=== PATIENT | female | born 1960 | race Caucasian/White ===

== ENCOUNTER → 2017-08-02 | Outpatient (CLI) | payer BC ==
--- NOTE | 2017-08-02 09:06 | DIAGNOSTIC IMAGING REPORT ---
THYROID ULTRASOUND CLINICAL HISTORY: Diffuse thyroid enlargement. Multiple thyroid nodules. COMPARISON STUDY: None. TECHNIQUE: Sonography of the thyroid gland was performed. FINDINGS: The right thyroid lobe measures 4.6 x 1.7 x 1.8 cm and the left measures 4.2 x 1.2 x 1.2 cm. There are are multiple subcentimeter thyroid nodules, the largest of which is a hypoechoic 0.5 cm left lobe nodule. A morphologically benign left level 4 cervical lymph node is incidentally noted. IMPRESSION: 1. Multiple small subcentimeter thyroid nodules, measuring up to 5 mm. These nodules do not meet criteria for biopsy. 2. Normal size thyroid gland. Electronically signed by: Flynn Mcpherson M.D. 08/02/2017 9:05 AM Dictated Date/Time: 08/02/2017 9:03 AM
== END | disposition home or self-care (01) ==
LOC: C.ULTR 08:25
PROVIDERS: ATTEND Family Medicine
DX: E04.2 Nontoxic multinodular goiter (principal)

== ENCOUNTER → 2017-09-08 | Outpatient (CLI) | payer BC ==
--- NOTE | 2017-09-08 09:54 | DIAGNOSTIC IMAGING REPORT ---
GI SERIES W/AIR ROUTINE CLINICAL HISTORY: DYSPHAGIA UNSPECIFIED COMPARISON STUDY: Barium swallow 05/27/2009. FLUOROSCOPY TIME: 1.7 minutes. 21 fluoroscopic spot images. FINDINGS: The patient swallowed barium without difficulty. The esophagus is normal in course, caliber, motility. No hiatus hernia. No gastroesophageal reflux. No gastric ulcerations. The duodenal bulb and duodenal C sweep are within normal limits. IMPRESSION: Normal upper GI series. Electronically signed by: Figueroa Kingston M.D. 09/08/2017 9:53 AM Dictated Date/Time: 09/08/2017 9:51 AM
== END | disposition home or self-care (01) ==
LOC: C.RAD 09:08
PROVIDERS: ATTEND Family Medicine
DX: R13.10 Dysphagia, unspecified (principal)

== ENCOUNTER → 2017-10-07 | Outpatient (CLI) | payer OTHER ==
--- NOTE | 2017-10-08 13:26 | MAMMOGRAPHY REPORT ---
BILATERAL DIGITAL SCREENING MAMMOGRAM TOMOSYNTHESIS WITH CAD: 10/07/2017 CLINICAL HISTORY: Routine screening. TECHNIQUE: Breast tomosynthesis in addition to standard 2D mammography was performed. Current study was also evaluated with a Computer Aided Detection (CAD) system. COMPARISON: Comparison is made to exams dated: 04/06/2011 mammogram, 04/03/2010 mammogram - [facility], 03/02/2015 mammogram - [facility], 11/18/2013 mammogram, 01/25/2009 mammogram. BREAST COMPOSITION: There are scattered areas of fibroglandular density in both breasts. FINDINGS: No suspicious masses, calcifications, or areas of architectural distortion are noted in ei ther breast. There has been no significant interval change compared to prior exams. IMPRESSION: ACR BI-RADS CATEGORY 1: NEGATIVE There is no mammographic evidence of malignancy. A 1 year screening mammogram is recommended. The pa tient will receive written notification of the results. Approximately 10% of breast cancers are not detected with mammography. A negative mammographic report should not delay biopsy if a clinically suggestive mass is present. Galina Griffiths M.D. ah/:10/07/2017 16:07:30 Department Mgr: Sabra SEVERINO(R)(M), [facility] letter sent: Normal 1/2 BI-RADS Code: ACR BI-RADS Category 1: Negative
== END | disposition home or self-care (01) ==
LOC: C.MAMM 15:48
PROVIDERS: ATTEND Family Medicine
DX: Z12.31 Encounter for screening mammogram for malignant neoplasm of breast (principal)

== ENCOUNTER 2024-12-15 20:26 | Inpatient (IN) ==
[2024-12-15 21:21] LABS: Albumin Globulin Ratio 1.2 (0.9-2); Albumin Level 4.3 gm/dl (3.4-5.0); BUN Creatinine Ratio 15.2 (10-20); Bilirubin,Total 0.9 mg/dl (0.2-1.0); Calcium 9.7 mg/dl (8.6-10.3); Creatinine Clr Calc Pharmacy 79.5 ml/min; Globulin 3.5 gm/dl (2.5-4.0); Potassium 3.3 mmol/L (3.5-5.1); Total Protein 7.8 gm/dl (6.0-8.3)
[2024-12-15 21:24] LABS: Basophils # (auto) 0.06 K/uL (0.00-0.20); Basophils % (auto) 0.6 %; Eosinophils # (auto) 0.32 K/uL (0.00-0.50); Eosinophils % (auto) 3.4 %; Hematocrit (blood only) 45.8 % (37.0-47.0); Hemoglobin 15.1 g/dl (12.0-16.0); Immature Granulocytes # (auto) 0.02 K/uL (0.01-0.20); Immature Granulocytes % (auto) 0.2 %; Lymphocytes # (auto) 3.29 K/uL (1.20-3.40); Lymphocytes % (auto) 34.5 %; Mean Corpuscular Hemoglobin 29.8 pg (25.0-34.0); Mean Corpuscular Volume 90.5 fL (80.0-100.0); Mean Platelet Volume 9.5 fL (9.4-12.4); Monocytes # (auto) 0.74 K/uL (0.11-0.59); Monocytes % (auto) 7.7 %; Neutrophils # (auto) 5.12 K/uL (1.40-6.50); Neutrophils % (auto) 53.6 %; Platelet Count 257 K/uL (130-400); RDW Coefficient of Variation 13.6 % (11.5-14.5); RDW Standard Deviation 45.1 fL (36.4-46.3); Red Blood Count 5.06 M/uL (4.20-5.40); White Blood Count 9.55 K/ul (4.8-10.8)
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
[2024-12-15] MEDS: OPTIRAY 320 100ml IV ONE (22:14)
--- NOTE | 2024-12-15 23:41 | CT Scan Report ---
Exam(s): CT FACIAL With Contrast IV Amt: 90 cc opti 320 EXAM: CT Maxillofacial With Intravenous Contrast CLINICAL HISTORY: Reason for exam: facial swelling. TECHNIQUE: Axial computed tomography images of the face with intravenous contrast. CTDI is 7.64 mGy and DLP is 145.91 mGy-cm. Automated exposure control was utilized for the study. A dose lowering technique was utilized adhering to the principles of ALARA. CONTRAST: Patient received 90 cc opti 320 of IV contrast COMPARISON: No relevant prior studies available. FINDINGS: There is periapical lucency/abscess involving the left first maxillary molar (tooth 14). There is dehiscence of the outer maxillary cortex with associated subperiosteal abscess measuring 6 x 15 x 10 mm (axial 37, sagittal 68). There is cellulitis of the adjacent lateral left upper lip soft tissues. There is reactive odontogenic sinus disease in the left maxillary sinus. There are no fractures. Paranasal sinuses are otherwise clear. Orbits are unremarkable. IMPRESSION: 1. Periapical abscesses left first maxillary molar (tooth 14) with dehiscence of the maxillary cortex, adjacent subperiosteal abscess, regional cellulitis. 2. Odontogenic left maxillary sinus disease. Electronically signed by: Tyra Kelly M.D. 12/15/24 23:40 PM
[2024-12-15] MEDS: lisinopril 5 MG TAB PO ONE (23:42)
[2024-12-15] MEDS: KETOROLAC TROMETHAMINE 15 MG/ML VIAL IV ONE (23:42)
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
[2024-12-16] MEDS: AMPICILLIN/SULBACTAM SOD 3,000 MG/100 ML BAG IV STA (00:20)
[2024-12-16] MEDS: MoRPHine SULFATE 2 MG/ML CARP IV PRN ×3 (01:42→12:19)
[2024-12-16] MEDS ORDERED: ONDANSETRON INJ 2 MG/ML 2 ML VIAL IV PRN (02:17)
[2024-12-16] MEDS: LACTATED RINGER'S 1,000 ML IV STA (03:19)
[2024-12-16] MEDS: AMPICILLIN/SULBACTAM SOD 3,000 MG/100 ML BAG IV SCH (06:12)
--- NOTE | 2024-12-16 07:39 | Hospitalist Progress Note ---
Date of Service December 16, 2024 Assessment & Plan (1) Periapical abscess: (2) Cellulitis of face: (3) Dental abscess: (4) Hyperlipidemia: (5) Hypertension: (6) Post concussive syndrome: Plan 64yo female with PMHx significant for HTN, HLD, developmental venous anomaly (cerebral), and LGSIL of cervix presented to ER for LEFT sided dental abscess x 1 wk. Was seen by auctioneer tobacco ~wk ago and had lesion drained and was encouraged to come to the ER if any redness/swelling. 4 days TRUCKLOAD OWNER OPERATOR started to notice facial edema and was started on PCN the day prior and then started Clindamycin day prior to admission with persisting facial edema and erythema with sudden worsening day TRUCKLOAD OWNER OPERATOR and presented to ER. Chills but no fevers but with significant pain on admission and given Unasyn IV, toradol IV in ER on admission. WBC 9.5k noting recent abx. No blood cx noted but no CP/SOB reported, has been on abx as outlined. #LEFT periapical abscess of first maxillary molar, facial cellulitis - >1wk pain, recent drainage and failure outpt abx (PCN, clinda) w/ erythema/edema to L face Facial CT noting periapical abscess of left first maxillary molar (tooth 14) with dehiscence of maxillary cortex, adjacent subperiosteal abscesses, regional cellulitis, odontogenic L maxillary sinus disease Unasyn IV continued IVF x 1L LR @ 80cc/hr ENT consulted, Dr Mandujano NPO initially this morning but discussed w/ Dr Mandujano given significant findings on CT and involvement to maxillary sinus and pref for 24hr abx and NPO at midnight and will plan for OR 4/6 Clear liquid diet, adv as paul to easy to chew Pain control- morphine 1-2mg IV on admission, discussed w/ patient given concerns constipation/making feel flushed will order oxycodone 2.5mg for mild- moderate pain (can inc to 5mg if needed) and ADDING TYLENOL 1gm q8h prn fever/pain for mild discomfort Monitor labs/exam in AM - K imporved 3.7 w/ LR and mag wnl and will monitor BMP in AM (on HCTZ/lisinopril combination) #HTN- BP stable 132/75 and remains on Lisinopril-HCTZ AM, Lisinopril HS. Monitor to hold diuretic as needed w/ IVF but has been given this morning #HLD- Atorvastatin 10mg HS continued #Migraine/Post concussive syndrome- Lamotrigine 50mg BID continued #Allergies- Loratadine, Montelukast continued #GERD- Pantoprazole continued #Psych- Sertraline 50mg daily continued DVT proph: SCDs, will order Lovenox SQ x 1 for today but hold off ongoing given OR for AM Dispo: continued inpatient stay on IV abx, NPO at midnight for OR w/ Dr Mandujano in AM. Will need ongoing f/u and likely 2nd surgery to address sinus pending operative course. Appreciate ongoing recs/assistance from Dr Mandujano Admission and Anticipated Discharge Date Admission Date: December 16, 2024 Supervising Physician Co-Signing Physician Notes The patient was not seen by me. The chart was reviewed. Case discussed with SAMUEL Funes. Agree with assessment and plan Subjective BRIDE NOTE: admitted after midnight, no pill Eval in ER, laying in bed. Pain stable, some hot flashing from the morphine, discussed low dose oxycodone and will make 2.5mg available. Tolerating diet, no difficulty swallowing. Discussed Dr Mandujano consult, saw this morning, plans for OR tomorrow. She is aware possibly needing two surgeries given involvement to her maxillary sinus. No CP/SOB. At end of encounter, transport arriving to take to room 356 for inpatient stay. Questions/concerns addressed. Physical Exam 2 Physical Exam: General: 64yo female laying in bed, NAD HEENT: left sided facial swelling, +maxillary tenderness, LEFT upper molar w/ periapical fluid collection/cyst without active drainage, no stridor, tolerating secretion Resp: even/unlabored, no wheezing, on room air CV: RRR, no significant m/r/g GI : +BS, soft/NT Psych: AOx3, cooperative with exam Results & Data Results & Data Vital Signs (Past 12 Hours) Vital Signs Temp Pulse Pulse Resp BP BP Pulse Ox 12/16/24 03:34 64 20 128/58 L 97 12/16/24 01:02 81 19 159/90 H 97 12/15/24 20:32 37 C 79 16 182/90 H 100 O2 Del Method 12/16/24 03:34 Room Air 12/16/24 01:02 Room Air 12/15/24 20:32 Room Air Laboratory Results 04/04/25 20:46 12/15/24 20:[address] 12/15/24 21:51 Exam(s): CT FACIAL With Contrast IV Amt: 90 cc opti 320 EXAM: CT Maxillofacial With Intravenous Contrast CLINICAL HISTORY: Reason for exam: facial swelling. TECHNIQUE: Axial computed tomography images of the face with intravenous contrast. CTDI is 7.64 mGy and DLP is 145.91 mGy-cm. Automated exposure control was utilized for the study. A dose lowering technique was utilized adhering to the principles of ALARA. CONTRAST: Patient received 90 cc opti 320 of IV contrast COMPARISON: No relevant prior studies available. FINDINGS: There is periapical lucency/abscess involving the left first maxillary molar (tooth 14). There is dehiscence of the outer maxillary cortex with associated subperiosteal abscess measuring 6 x 15 x 10 mm (axial 37, sagittal 68). There is cellulitis of the adjacent lateral left upper lip soft tissues. There is reactive odontogenic sinus disease in the left maxillary sinus. There are no fractures. Paranasal sinuses are otherwise clear. Orbits are unremarkable. IMPRESSION: 1. Periapical abscesses left first maxillary molar (tooth 14) with dehiscence of the maxillary cortex, adjacent subperiosteal abscess, regional cellulitis. 2. Odontogenic left maxillary sinus disease. Electronically signed by: Tyra Kelly M.D. 12/15/24 23:40 PM PG Care Time/CCT Total # of Minutes Spent Total Time Spent with Patient: Total time spent is greater than 50% in coordination of care (as documented) at patient's floor/unit and/or counseling patient: Coding Level of Care Code None Diagnoses Periapical abscess K04.7 Cellulitis of face L03.211 Dental abscess K04.7 Hyperlipidemia E78.5 Hypertension I10 Post concussive syndrome F07.81
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
[2024-12-16 09:18] LABS: Calcium 8.6 mg/dl (8.6-10.3); Creatinine Clr Calc Pharmacy 108.2 ml/min; Potassium 3.7 mmol/L (3.5-5.1)
[2024-12-16] MEDS: PANTOprazole 40 MG TAB PO SCH (10:02)
[2024-12-16] MEDS: LORATADINE 10 MG TAB PO SCH (10:02)
[2024-12-16] MEDS: lamoTRIgine 25 MG TAB PO SCH (10:02)
[2024-12-16] MEDS: SERTRALINE HCL 50 MG TABLET PO SCH (10:02)
[2024-12-16] MEDS: LISINOPRIL/HCTZ 10/12.5MG TAB PO SCH (10:03)
[2024-12-16] MEDS: ENOXAPARIN INJ 40 MG/0.4 ML SYR SQ ONE (14:40)
[2024-12-16] MEDS: oxyCODONE HCL IR 5 MG TAB (IMMEDIATE RELEASE) PO PRN (14:52)
[2024-12-16] MEDS: lisinopril 10 MG TAB PO SCH (21:22)
[2024-12-16] MEDS: ATORVASTATIN 10 MG TAB PO SCH (21:23)
[2024-12-16] MEDS: MONTELUKAST SODIUM 10 MG TABLET PO SCH (21:23)
--- NOTE | 2024-12-16 22:05 | Electrocardiogram Report ---
Test Reason : Blood Pressure : */* mmHG Vent. Rate : 73 BPM Atrial Rate : 73 BPM P-R Int : 184 ms QRS Dur : 84 ms QT Int : 396 ms P-R-T Axes : 41 16 32 degrees QTcB Int : 436 ms Normal sinus rhythm Normal ECG When compared with ECG of 19-May-2024 10:33, No significant change was found Confirmed by Ky Hunt ([id number]) on 12/16/2024 10:04:47 PM Referred By: Nam Weldon Confirmed By: Ky Hunt
[2024-12-16] MEDS: MELATONIN 3 MG TAB PO PRN (23:20)
[2024-12-16] MEDS: ACETAMINOPHEN 500 MG TAB PO PRN (23:32)
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
--- NOTE | 2024-12-17 07:37 | History & Physical Bridge Note ---
Date of Service December 17, 2024 History & Physical Bridge Note I have examined the patient, reviewed the History & Physical and in the interval since the performance of the History & Physical I have noted the following changes of clinical significance: no changes noted. Swelling much improved in the face still in the mucobuccal fold. Plan I&D with extraction of # 14
[2024-12-17] MEDS ORDERED: ROCURONIUM BROMIDE 10 MG/ML 5 ML VIAL IV ONE (07:40)
[2024-12-17] MEDS ORDERED: ONDANSETRON INJ 2 MG/ML 2 ML VIAL ONE (07:40)
[2024-12-17] MEDS ORDERED: DEXAMETHASONE SOD INJ 4 MG/ML VIAL ONE ×2 (07:40→08:03)
[2024-12-17] MEDS ORDERED: PROPOFOL IV EMULSION 10 MG/ML 20 ML VIAL IV ONE (07:40)
[2024-12-17] MEDS ORDERED: fentaNYL citrate PF 100 MCG/2 ML VIAL ONE (07:41)
[2024-12-17] MEDS ORDERED: SUGAMMADEX SODIUM 200 MG/2 ML VIAL IV ONE ×2 (07:42)
[2024-12-17] MEDS: BUPIVACAINE/EPINEPHRINE 0.5% 1:200,000 1.8 ML CARP ONE (08:07)
[2024-12-17] MEDS: CHLORHEXIDINE GLUCONATE 0.12% 480 ML MT ONE (08:07)
--- NOTE | 2024-12-17 08:10 | Discharge Summary ---
Discharge Summary Date of Service December 17, 2024 Principal Dx & Hospital Course #1 = Principal Diagnosis (1) Periapical abscess: (2) Cellulitis of face: (3) Dental abscess: (4) Hyperlipidemia: (5) Hypertension: (6) Post concussive syndrome: Plan 64yo female with PMHx significant for HTN, HLD, developmental venous anomaly (cerebral), and LGSIL of cervix presented to ER for LEFT sided dental abscess x 1 wk. Was seen by field crops harvest machine operator ~wk ago and had lesion drained and was encouraged to come to the ER if any redness/swelling. 4 days [employer]OPS FARMWORKER started to notice facial edema and was started on PCN the day prior and then started Clindamycin day prior to admission with persisting facial edema and erythema with sudden worsening day [employer] FARM[employer] and presented to ER. Chills but no fevers but with significant pain on admission and given Unasyn IV, toradol IV in ER on admission. WBC 9.5k noting recent abx. No blood cx noted but no CP/SOB reported, has been on abx as outlined. #LEFT periapical abscess of first maxillary molar, facial cellulitis - >1wk pain, recent drainage and failure outpt abx (PCN, clinda) w/ erythema/edema to L face Facial CT noting periapical abscess of left first maxillary molar (tooth 14) with dehiscence of maxillary cortex, adjacent subperiosteal abscesses, regional cellulitis, odontogenic L maxillary sinus disease Unasyn IV continued IVF x 1L LR @ 80cc/hr ENT consulted, Dr Mandujano NPO initially this morning but discussed w/ Dr Mandujano given significant findings on CT and involvement to maxillary sinus and pref for 24hr abx and NPO at midnight and will plan for OR 4/6 Clear liquid diet, adv as paul to easy to chew Pain control- morphine 1-2mg IV on admission, discussed w/ patient given concerns constipation/making feel flushed will order oxycodone 2.5mg for mild- moderate pain (can inc to 5mg if needed) and ADDING TYLENOL 1gm q8h prn fever/pain for mild discomfort Monitor labs/exam in AM - K improved 3.7 w/ LR and mag wnl and will monitor BMP in AM (on HCTZ/lisinopril combination) 4/6. Unasyn IV continued. LR @ 80cc/hr ordered while NPO for OR w/ Dr Mandujano. Lab s pending from this morning #HTN- BP stable 132/75 and remains on Lisinopril-HCTZ AM, Lisinopril HS. Monitor to hold diuretic as needed w/ IVF but has been given this morning #HLD- Atorvastatin 10mg HS continued #Migraine/Post concussive syndrome- Lamotrigine 50mg BID continued #Allergies- Loratadine, Montelukast continued #GERD- Pantoprazole continued #Psych- Sertraline 50mg daily continued DVT proph: SCDs, will order Lovenox SQ x 1 for today but hold off ongoing given OR for AM Dispo: continued inpatient stay on IV abx, NPO at midnight for OR w/ Dr Mandujano in AM. Will need ongoing f/u and likely 2nd surgery to address sinus pending operative course. Appreciate ongoing recs/assistance from Dr Mandujano Admission HPI Per Admitting Provider 64-year-old female PMHx HLD, HTN, developmental venous anomaly (cerebral), and LGSIL of cervix presenting for left-sided dental abscess x 1 week. Patient saw her field crops harvest machine operator around 1 week [employer] to have the lesion drained, and then was encouraged to come to the ED if her face became erythematous or edematous. States that approximately 4 days [employer] she started to notice some facial edema. Was started on penicillin 5 days [employer] FARM[employer], and then started on clindamycin the day [employer] FARM[employer] with persisting facial edema and erythema. Notes that the swelling felt that it suddenly worsened the day [employer] FARM[employer] and this concerned her. She notes that there was no injury or trauma to the area that initially had started the infection, but she did have a root canal approximately 4 years ago at that area. Was initially seen by dentist who stated that she needed to have a procedure to alleviate the infection, and that he had poked the area in hopes that drainage would occur, but no drainage occurred. Patient states that she feels she may have some chills on and off but no fevers. Reports that the pain is "severe" and that medications in ED did not alleviate the pain at all. Denying chest pain, shortness of breath, palpitations, abdominal pain, N/V/D/C, numbness/tingling, LUTS, syncope, or weakness. ED evaluation reveals no leukocytosis, stable H&H; CMP potassium 3.3, AST 12, alk phos 106; face CT reveals periapical abscess of left first maxillary molar (tooth 14) with dehiscence of maxillary cortex, adjacent subperiosteal abscesses, regional cellulitis, odontogenic L maxillary sinus disease; EKG NSR at 73bpm.; Provided with Unasyn 3 g IV, ketorolac 15 mg IV, and lisinopril 10 mg p.o. in ED. Please see Dr. Benavidez's attestation for adjustments/additions to treatment plan. Discharge Plan Discharge Items Reason For Visit: PERIAPICAL CELLULITIS, L Follow-up/Referrals: Shantel Freed [Primary Care Provider] - Medications and DC Order Prescriptions: No Action lisinopril 10 mg tablet 10 mg PO HS multivitamin Tablet 1 tab PO QAM atorvastatin 10 mg tablet 10 mg PO HS acetaminophen [Tylenol Extra Strength] 500 mg Tablet 1,000 mg PO Q6H PRN (Reason: Pain) pantoprazole 40 mg tablet,delayed release (DR/EC) 40 mg PO QAM montelukast 10 mg tablet 10 mg PO HS lisinopril-hydrochlorothiazide 10-12.5 mg tablet 1 tab PO QAM loratadine [Claritin] 10 mg Tablet 10 mg PO QAM lamotrigine [Lamictal] 25 mg tablet 50 mg PO BID Rx Instructions: 2 tabs po BID. sertraline 50 mg tablet 50 mg PO QAM clindamycin HCl 150 mg capsule 150 mg PO Q6H Rx Instructions: STARTED 12/14/24 FOR 7 DAYS Admission Data Admit Date/Time: 12/16/24 00:49 Attending Provider: Nam Pearl Admit Provider: Kenneth Benavidez Primary Care Provider: Shantel Freed Other Providers: Kenneth Benavidez; Jhonatan Mandujano Hospital Stay Data Consultations 12/16/24 00:07 ED Decision to Admit Stat 12/16/24 02:17 Consult Oromaxillofacial Surgery Routine Procedures Performed Operation Date: 12/17/24 07:30 <No data on this case meets the specified criteria> Diagnostic Imagining Performed 12/15/24 21:51 CT facial bones w con Stat Coding Diagnoses Periapical abscess K04.7 Cellulitis of face L03.211 Dental abscess K04.7 Hyperlipidemia E78.5 Hypertension I10 Post concussive syndrome F07.81
--- NOTE | 2024-12-17 08:33 | Post Operative Brief Note ---
PG Immediate Post Op with CF Date of Surgery December 17, 2024 Pre & Post Diagnosis Operation Date: 12/17/24 07:30 <No data on this case meets the specified criteria> I identified the patient and participated in the time-out.: Yes Procedure Operation Date: 12/17/24 07:30 <No data on this case meets the specified criteria> Surgeon Jhonatan Mandujano, DMD Communications Consultant none Estimated Blood Loss 2 Findings Consistent with Post-Op Diagnosis swollen mucobuccal fold, infected # 14 , maxillary sinus cyst with infection Specimens Specimen Description: #1. Left Posterior Maxillary Sinus Abscess-swabbed for routine C&S, aerobic, anaeroibic and gram stain A.Left Maxillary Sinus Cyst Complications none Disposition Accompanied Patient To Recovery: Yes
[2024-12-17] MEDS: SURGICEL ABSORB HEMOSTAT 2IN X 14IN TOP ONE (08:37)
--- NOTE | 2024-12-17 08:46 | Hospitalist Progress Note ---
Date of Service December 17, 2024 Assessment & Plan (1) Periapical abscess: (2) Cellulitis of face: (3) Dental abscess: (4) Hyperlipidemia: (5) Hypertension: (6) Post concussive syndrome: Plan 64yo female with PMHx significant for HTN, HLD, developmental venous anomaly (cerebral), and LGSIL of cervix presented to ER for LEFT sided dental abscess x 1 wk. Was seen by software build engineer ~wk ago and had lesion drained and was encouraged to come to the ER if any redness/swelling. 4 days CLAIMS COLLECTOR started to notice facial edema and was started on PCN the day prior and then started Clindamycin day prior to admission with persisting facial edema and erythema with sudden worsening day CLAIMS COLLECTOR and presented to ER. Chills but no fevers but with significant pain on admission and given Unasyn IV, toradol IV in ER on admission. WBC 9.5k noting recent abx. No blood cx noted but no CP/SOB reported, has been on abx as outlined. #LEFT periapical abscess of first maxillary molar, facial cellulitis - >1wk pain, recent drainage and failure outpt abx (PCN, clinda) w/ erythema/edema to L face Facial CT noting periapical abscess of left first maxillary molar (tooth 14) with dehiscence of maxillary cortex, adjacent subperiosteal abscesses, regional cellulitis, odontogenic L maxillary sinus disease Unasyn IV, IVF, pain control. Plans for OR / w/ Dr Mandujano s/p facial incision and drainage, extraction of tooth # 14 and excision of L maxillary sinus cyst by Dr Mandujano this morning 12/17. Tolerated well per Dr Mandujano Continue IV abx, pain control, ice Diet as tolerated, IVF until see able to tolerate. Home lisinopril HS held for this evening and will place AM HCTZ/lisinopril on hold post-op to prevent hypotension given was borderline when seen post-op but elevated 156/89 likely from pain and pain meds adjusted --Oxycodone increased to 5mg as needed and added tylenol for non severe pain. Morphine available for breakthrough if needed as well as toradol for NSAID/anti-inflammatory Continued inpatient stay and per Dr Mandujano, will see in AM to review instructions with suspected discharge #HTN On lisinopril/HCTZ QAM, lisinopril HS-- > placed on hold post-op for now. Can resume lisinopril HS if remains elevated but would hold HCTZ/lisinopril for AM and monitor renal function/potassium and BP prior to ensure no issues #HLD- Atorvastatin 10mg HS #Migraine/Post concussive syndrome- Lamotrigine 50mg BID #Allergies- Loratadine, Montelukast #GERD- Pantoprazole #Psych- Sertraline 50mg daily DVT proph: SCDs, Lovenox SQ x 1 on 12/16, hold off further for now to prevent bleeding issues directly post-op but if not dc in AM can resume once daily Dispo: continued inpatient stay on IV abx/pain control and hopeful dc 12/18 with outpatient follow up for ongoing dental care Admission and Anticipated Discharge Date Admission Date: December 16, 2024 Supervising Physician Co-Signing Physician Notes The patient was not seen by me. The chart was reviewed. Case discussed with SAMUEL Funes. Agree with assessment and plan Subjective Eval this morning, in bed, just got back from OR. Painful, pain 5-6/10, req for pain meds, RN bringing in. Prior 2.5mg oxy effective but this is increased pain and will have additional 2.5mg x 1 for total 5mg and change prn to 5mg and discussed to let know if needing increased. Morphine available if need. Does have some drainage which is irritating, has gauze on lap and discussed to change as needed. Encouraged continued ice. Toradol also available. Remain on abx. Physical Exam 2 Physical Exam: General: 64yo in bed post-operative, mild-moderate discomfort/requesting pain medication HEENT: L sided facial swelling, gauze in place for recent extraction #14, some scant blood/sutures noted but no stridor, tolerating secretions Resp: even/unlabored, on NC post-op --> titrated to RA this afternoon CV:regular, rates controlled,no significant m/r/g GI: +BS, soft/nt MSK/Neuro/Psych: AOx3, cooperative, not confused, no slurred speech/facial droop Results & Data Results & Data Vital Signs (Past 12 Hours) Vital Signs Temp Pulse Resp BP Pulse Ox O2 Del Method 12/17/24 07:15 36.7 C 60 18 124/83 100 Room Air 12/16/24 22:22 36.8 C 76 18 118/75 95 Room Air Laboratory Results 12/17/24 10:07 12/17/24 10:07 LFTs wnl PG Care Time/CCT Total # of Minutes Spent Total Time Spent with Patient: Total time spent is greater than 50% in coordination of care (as documented) at patient's floor/unit and/or counseling patient: Coding Level of Care Code 25316 SUB INP/OBS CARE 3/50MIN Diagnoses Periapical abscess K04.7 Cellulitis of face L03.211 Dental abscess K04.7 Hyperlipidemia E78.5 Hypertension I10 Post concussive syndrome F07.81
[2024-12-17] MEDS ORDERED: ATROPINE SULFATE 0.1 MG/ML 10ML SYR IV PRN (09:06)
[2024-12-17] MEDS ORDERED: ePHEDrine sulfate 50 MG/ML AMP IV PRN (09:06)
[2024-12-17] MEDS ORDERED: HYDROmorphone INJ 1 MG/ML SYRINGE IV PRN (09:06)
[2024-12-17] MEDS ORDERED: fentaNYL citrate PF 100 MCG/2 ML VIAL IV PRN (09:06)
--- NOTE | 2024-12-17 09:07 | Anesthesiology Progress Note ---
Date of Service December 17, 2024 Anesthesia Post Procedure Vital Signs Vital Signs: Temp Pulse Resp BP Pulse Ox O2 Del Method 12/17/24 09:00 64 19 98/74 L 95 Room Air 12/17/24 08:50 62 19 126/51 L 95 Room Air 12/17/24 08:41 36.4 C L 68 19 145/60 H 98 Room Air 12/17/24 07:15 36.7 C 60 18 124/83 100 Room Air 12/16/24 22:22 36.8 C 76 18 118/75 95 Room Air 12/16/24 12:26 71 16 132/75 93 Room Air Transfer of Care Handoff Completed per policy Notes Mental Status: alert / awake / arousable and participated in evaluation Patient Amnestic to Procedure: Yes Nausea / Vomiting: adequately controlled Pain: adequately controlled Airway Patency, RR, SpO2: stable & adequate BP & HR: stable & adequate Hydration State: stable & adequate Anesthetic Complications: no major complications apparent and Pt Satisfied with anesthetic care
[2024-12-17] MEDS ORDERED: oxyCODONE HCL IR 5 MG TAB (IMMEDIATE RELEASE) PO PRN ×2 (10:03→12:26)
[2024-12-17] MEDS: oxyCODONE HCL IR 5 MG TAB (IMMEDIATE RELEASE) PO STA (10:15)
[2024-12-17] MEDS: LACTATED RINGER'S 1,000 ML IV SCH ×2 (10:22→10:30)
[2024-12-17 10:25] LABS: Hematocrit (blood only) 42.1 % (37.0-47.0); Hemoglobin 13.8 g/dl (12.0-16.0); Mean Corpuscular Hemoglobin 30.3 pg (25.0-34.0); Mean Corpuscular Hgb Conc 32.8 g/dL (32.0-36.0); Mean Corpuscular Volume 92.3 fL (80.0-100.0); Mean Platelet Volume 9.3 fL (9.4-12.4); Platelet Count 234 K/uL (130-400); RDW Coefficient of Variation 13.7 % (11.5-14.5); RDW Standard Deviation 46.5 fL (36.4-46.3); Red Blood Count 4.56 M/uL (4.20-5.40); White Blood Count 7.31 K/ul (4.8-10.8)
[2024-12-17 10:41] LABS: Albumin Level 3.5 gm/dl (3.4-5.0); Bilirubin,Total 0.4 mg/dl (0.2-1.0); Calcium 8.9 mg/dl (8.6-10.3); Creatinine Clr Calc Pharmacy 102.9 ml/min; Potassium 3.7 mmol/L (3.5-5.1); Total Protein 6.6 gm/dl (6.0-8.3)
[2024-12-17] MEDS: KETOROLAC TROMETHAMINE 15 MG/ML VIAL IV PRN (12:38)
--- NOTE | 2024-12-17 14:44 | Operative Report ---
PG Post Operative Report Pre & Post Diagnosis Operation Date: 12/17/24 07:30 Pre-Op Diagnosis: 1) Cellulitis of face (2) Dental abscess (3) Periapical abscess (4) Maxillary sinus cyst Post-Op Diagnosis: 1) Cellulitis of face (2) Dental abscess (3) Periapical abscess (4) Maxillary sinus cyst I identified the patient and participated in the time-out.: Yes Procedure Operation Date: 12/17/24 07:30 Actual Procedures p Facial Incision and Drainage, Extraction of Tooth #14 and Excision of Left Maxillary Sinus Cyst(Left) - Jhonatan Mandujano, OWEN Surgeon Jhonatan Mandujano, OWEN Logistics Specialist none Estimated Blood Loss 2 Findings Consistent with Post-Op Diagnosis Specimens infected tissue from sinus and tooth Drains none Anesthesia Type General Complications none Disposition Accompanied Patient To Recovery: Yes Indications Acute facial infection, secondary to abscess tooth number 14 with communication into the left maxillary sinus Description of Procedure Diagnosis acute left facial infection acute left maxillary sinus infection abscess tooth number 14 Actual ProceduresCPT Excision and drainage of left vestibular space infection CPT code 63301 Curettement of cyst left maxillary sinus Surgical extraction of tooth number 14 [id number] CPT code 11706 D7210 ICD10 K12.2 Once cleared for surgery general anesthesia was achieved, the eyes were protec mathew by the anesthesia dept criteria. A time out was take for patient ID, antibiotics, equipment and position verification once all agreed the procedure began. Local anesthesia using Marcaine with a vasoconstrictor ( 1.8 ml per site) given into left posterior area A throat pack was placed after the oral cavity was irrigated with saline. Once a surgical level of anesthesia was obtained and the local anesthesia was given time for the blocks the surgery was started. I turned my attention to the infection which was located in the mucobuccal fold of the upper left side with communication into the left maxillary sinus Incision and Drainage Vestibular space and mucobuccal fold left side ---CPT 62760 / ICD 10 K12.2 Using a 15 blade an incision was made lateral to the alveolar ridge To drain drain the grossly swollen vestibular space of the left maxilla. Once the incision was made a lot of pus extruded from the site. This drainage was cultured for anaerobic and aerobic bacteria. A curved hemostat was carefully placed into the infected space along the The lateral aspect of the maxillary, sinus and maxillary Alveolar nasal complex region Some further drainage was now allowed to escape. I palpated the cheek and palatal area and no further drainage was expressed. The area was irrigated with at least 100 ml of NS solution. I now turned my attention to remove the # 14 tooth. Extraction of tooth number 14 (D7210 surgical extraction x 1) tooth number 14 had a root canal and a crown placed in the past. As a result of the root canal, the tooth developed a large periapical cyst that eroded into the floor of the sinus. It was obvious from the CT scan that there was a large dome shaped lesion into the floor of the sinus. It is difficult to say if this dome structure represents bone or just dense scar tissue. The floor of the sinus was also grossly congested. Once the vestibular space was drained, there was a large amount of pus that extruded from the sinus. The full thick Muco-periosteal flap was made on the facial aspect from 16-12. The flap was reflected to expose the the subperiosteal space the bone adjacent to # 14. The rogues was used to remove bone, the tooth was removed with a 301 elevator and dental forceps. The tooth was was carefully removed in total. Upon removal of the tooth, it was obvious that there was a large amount of chronically, inflamed tissue associated with the floor of the maxillary sinus. With careful dissection, I was able to find the very thin separation between the enlarged cystic space and the floor of the sinus and curated all of the soft material from this site.There was a small perforations in this very scarred like sinus lining that the oral cavity from the sinus cavity. Once I removed all of the soft tissue, which I submitted for pathology, I then irrigated the area to ensure that all soft tissue debris was removed. I smooth down the bony margins trimmed the bone on the facial aspect where the main infection was drained. With the use of a Surgicel, I placed a few small sheets of Surgicel over the sinus membrane that had a small perforation and then suture the soft tissue closed with the use of a 2-0 chronic suture. I inspected the site to insure all bleeding was controlled. I removed the throat pack and suctioned the throat. Al gauze pressure dressings was placed. All instrument and sponge count was correct. The patient was allowed to awake from the anesthesia. Once full awake the anesthesia tube was removed and the patient was taken to the recovery room with all vital sign stable. The patient tolerated the surgery very well. I will follow the patient in my office, Rx and instructions will be given upon discharge. We did discuss the possibility that if a small sinus fistula exist that I will need to deal with this once the sinus infection is completely closed. It is difficult to say at this time if that is the case. I will be following Clifford and see her in approximately 10 days. I attest to the content of the Intraoperative Record and any orders documented therein. Any exceptions are noted below.
[2024-12-17] MEDS: oxyCODONE HCL IR 5 MG TAB (IMMEDIATE RELEASE) PO PRN (18:08)
[2024-12-18 03:24] VITALS: RESP 18
[2024-12-18 07:31] LABS: BUN Creatinine Ratio 24.2 (10-20); Calcium 8.7 mg/dl (8.6-10.3); Creatinine Clr Calc Pharmacy 95.1 ml/min; Potassium 4.3 mmol/L (3.5-5.1)
[2024-12-18 08:19] VITALS: BP 138/74; PULSE 88; TEMP 97.7; O2SAT 97
--- NOTE | 2024-12-18 08:25 | Hospitalist Progress Note ---
Date of Service December 18, 2024 Assessment & Plan (1) Periapical abscess: (2) Cellulitis of face: (3) Dental abscess: (4) Hyperlipidemia: (5) Hypertension: (6) Post concussive syndrome: Plan 64yo female with PMHx significant for HTN, HLD, developmental venous anomaly (cerebral), and LGSIL of cervix presented to ER for LEFT sided dental abscess x 1 wk. Was seen by supervisor drying ~wk ago and had lesion drained and was encouraged to come to the ER if any redness/swelling. 4 days FRAME OPERATOR started to notice facial edema and was started on PCN the day prior and then started Clindamycin day prior to admission with persisting facial edema and erythema with sudden worsening day FRAME OPERATOR and presented to ER. Chills but no fevers but with significant pain on admission and given Unasyn IV, toradol IV in ER on admission. WBC 9.5k noting recent abx. No blood cx noted but no CP/SOB reported, has been on abx as outlined. #LEFT periapical abscess of first maxillary molar, facial cellulitis - >1wk pain, recent drainage and failure outpt abx (PCN, clinda) w/ erythema/e terrell to L face Facial CT noting periapical abscess of left first maxillary molar (tooth 14) with dehiscence of maxillary cortex, adjacent subperiosteal abscesses, regional cellulitis, odontogenic L maxillary sinus disease Unasyn IV, IVF, pain control. Plans for OR / w/ Dr Mandujano s/p facial incision and drainage, extraction of tooth # 14 and excision of L maxillary sinus cyst by Dr Mandujano this morning 12/17. Tolerated well per Dr Mandujano Continue IV abx, pain control, ice Diet as tolerated, IVF until see able to tolerate. Home lisinopril HS held for this evening and will place AM HCTZ/lisinopril on hold post-op to prevent hypotension given was borderline when seen post-op but elevated 156/89 likely from pain and pain meds adjusted --Oxycodone increased to 5mg as needed and added tylenol for non severe pain. Morphine available for breakthrough if needed as well as toradol for NSAID/anti-inflammatory Continued inpatient stay and per Dr Mandujano, will see in AM to review instructions with suspected discharge #HTN On lisinopril/HCTZ QAM, lisinopril HS-- > placed on hold post-op for now. Can resume lisinopril HS if remains elevated but would hold HCTZ/lisinopril for AM and monitor renal function/potassium and BP prior to ensure no issues #HLD- Atorvastatin 10mg HS #Migraine/Post concussive syndrome- Lamotrigine 50mg BID #Allergies- Loratadine, Montelukast #GERD- Pantoprazole #Psych- Sertraline 50mg daily DVT proph: SCDs, Lovenox SQ x 1 on 12/16, hold off further for now to prevent bleeding issues directly post-op but if not dc in AM can resume once daily Dispo: continued inpatient stay on IV abx/pain control and hopeful dc 12/18 with outpatient follow up for ongoing dental care Admission and Anticipated Discharge Date Admission Date: December 17, 2024 Results & Data Results & Data Vital Signs (Past 12 Hours) Vital Signs Temp Pulse Pulse Resp BP Pulse Ox O2 Del Method 12/18/24 08:17 36.5 C 88 18 138/74 97 Room Air 12/18/24 03:24 36.8 C 65 18 125/77 95 Room Air 12/17/24 23:02 36.9 C 70 16 123/72 94 Room Air PG Care Time/CCT Total # of Minutes Spent Total Time Spent with Patient: Total time spent is greater than 50% in coordination of care (as documented) at patient's floor/unit and/or counseling patient: Coding Diagnoses Periapical abscess K04.7 Cellulitis of face L03.211 Dental abscess K04.7 Hyperlipidemia E78.5 Hypertension I10 Post concussive syndrome F07.81
--- NOTE | 2024-12-18 09:47 | Discharge Summary ---
Discharge Summary Date of Service December 18, 2024 Principal Dx & Hospital Course #1 = Principal Diagnosis (1) Periapical abscess: (2) Cellulitis of face: (3) Dental abscess: (4) Hyperlipidemia: (5) Hypertension: (6) Post concussive syndrome: Plan 64yo female with PMHx significant for HTN, HLD, developmental venous anomaly (cerebral), and LGSIL of cervix presented to ER for LEFT sided dental abscess x 1 wk. Was seen by soup mixer ~wk ago and had lesion drained and was encouraged to come to the ER if any redness/swelling. 4 days BUSINESS EDUCATION INSTRUCTOR started to notice facial edema and was started on PCN the day prior and then started Clindamycin day prior to admission with persisting facial edema and erythema with sudden worsening day BUSINESS EDUCATION INSTRUCTOR and presented to ER. Chills but no fevers but with significant pain on admission and given Unasyn IV, toradol IV in ER on admission. WBC 9.5k noting recent abx. No blood cx noted but no CP/SOB reported, has been on abx as outlined. #LEFT periapical abscess of first maxillary molar, facial cellulitis - >1wk pain, recent drainage and failure outpt abx (PCN, clinda) w/ erythema/edema to L face Facial CT noting periapical abscess of left first maxillary molar (tooth 14) with dehiscence of maxillary cortex, adjacent subperiosteal abscesses, regional cellulitis, odontogenic L maxillary sinus disease Placed on Unasyn IV, IVF and provided pain control with ENT consultation with Dr Mandujano Allowed 24hr IV abx for 12/16 and planned OR for extraction #14 and excision of L maxillary sinus cyst for 12/17 s/p I&D with Dr Mandujano on 12/17 and remained on IV abx with significant improvement. Cx from OR pending at time of discharge however SIGNIFICANT improvement on exam and tolerating diet and plan to dc on Augmentin BID x 10 day course, Oxycodone 5mg as needed for breakthrough pain (tylenol/ibuprofen for non-severe pain), ocean spray nasal BID to help keep lubricated, mouth rinse, and to avoid straws/excessive blowing nose/etc as discussed w/ patient and Dr Mandujano in person regarding dc instructions and return sx and plan for outpatint follow up with Dr Mandujano. Return sx discussed and discharged in stable condition #HTN BP stable and did hold lisinopril HS/lisinopril/HCTZ QAM evening of OR but BP stable and stable renal function and tolerance of diet and can be resumed at dc #HLD- Atorvastatin 10mg HS continued #Migraine/Post concussive syndrome- Lamotrigine 50mg BID continued #Allergies- Loratadine, Montelukast continued. nasal spray BID at dc rec'd as above #GERD- Pantoprazole continued #Psych- Sertraline 50mg daily continued. stable DVT proph: SCDs, Lovenox SQ x 1 on 12/16, but held further as plans for OR and ambulating and dc planned for today Dispo : dc on PO abx and pain control, short rx zofran ODT if needed and f/u with Dr Mandujano and PCP outpatient Notes For Next Care Provider F/u final cx from OR but significant improvement on Unasyn and dc on Augmentin x 10 day course F/u Dr Mandujano Medication Changes From Visit Augmentin 1 tablet BID x 10 days Oxycodone 5mg as needed Zofran 4mg ODT prn [place] nasal spray BID OTC recommended Admission HPI Per Admitting Provider Chief Complaint: Dental abscess Primary Care Provider: Shantel Freed 64-year-old female PMHx HLD, HTN, developmental venous anomaly (cerebral), and LGSIL of cervix presenting for left-sided dental abscess x 1 week. Patient saw her soup mixer around 1 week BUSINESS EDUCATION INSTRUCTOR to have the lesion drained, and then was encouraged to come to the ED if her face became erythematous or edematous. States that approximately 4 days BUSINESS EDUCATION INSTRUCTOR she started to notice some facial edema. Was started on penicillin 5 days BUSINESS EDUCATION INSTRUCTOR, and then started on clindamycin the day BUSINESS EDUCATION INSTRUCTOR with persisting facial edema and erythema. Notes that the swelling felt that it suddenly worsened the day BUSINESS EDUCATION INSTRUCTOR and this concerned her. She notes that there was no injury or trauma to the area that initially had started the infection, but she did have a root canal approximately 4 years ago at that area. Was initially seen by dentist who stated that she needed to have a procedure to alleviate the infection, and that he had poked the area in hopes that drainage would occur, but no drainage occurred. Patient states that she feels she may have some chills on and off but no fevers. Reports that the pain is "severe" and that medications in ED did not alleviate the pain at all. Denying chest pain, shortness of breath, palpitations, abdominal pain, N/V/D/C, numbness/tingling, LUTS, syncope, or weakness. ED evaluation reveals no leukocytosis, stable H&H; CMP potassium 3.3, AST 12, alk phos 106; face CT reveals periapical abscess of left first maxillary molar (tooth 14) with dehiscence of maxillary cortex, adjacent subperiosteal abscesses, regional cellulitis, odontogenic L maxillary sinus disease; EKG NSR at 73bpm.; Provided with Unasyn 3 g IV, ketorolac 15 mg IV, and lisinopril 10 mg p.o. in ED. Admission Exam Per Admitting Provider General: No acute distress, hemodynamically stable Skin: Warm and dry Head: Normocephalic, atraumatic Eyes: PERRL, conjunctivae clear, sclera non-icteric Oral: Abscess on L side, back tooth; no drainage; some edema ENT: External ear and ear canal without swelling; nose atraumatic; good dentition, tongue normal appearance, pharynx normal Neck: Supple, no LAD Cardio: RRR, no M/G/R, S1 and S2 normal Resp: No respiratory distress, Lungs CTA in all lobes bilaterally, no wheezes, rales, or rhonchi Abdomen: Soft, symmetric, nontender; No masses or hepatosplenomegaly; Bowel sounds normoactive MSK: No deformities; pulses palpable and equal; no edema. Neuro: Awake, alert; Sensation intact bilaterally; CN grossly intact Psych: Appropriate mood and affect; good judgement and insight. Discharge Exam General: 64yo resting in bed, MUCH improved, L facial swelling much decreased, mmm, trachea midline without deviation and no stridor sutures to upper left mouth s/p extraction, sinus intact w/ nose blow, tolerating oral intake Resp: even/unlabored, no wheezing, on room air CV:regular, rates controlled,no significant m/r/g GI: +BS, soft/nt MSK/Neuro/Psych: AOx3, cooperative, not confused, no slurred speech/facial droop Discharge Plan Discharge Items Patient Disposition: Home - Self-Care Reason For Visit: PERIAPICAL CELLULITIS, L Discharge Diagnosis: s/p I&D upper left oral/sinus infection Goals: You have been hospitalized for an urgent problem which required surgery. During your stay at [facility], we have made an effort to correct the problem that brought you to the hospital while keeping you as comfortable as possible. Surgery and medications were used to bring your condition under control and your discharge instructions will include directions for any medications you should take after leaving the hospital. Please make sure to follow the advice of your surgeon regarding follow up with the surgeon and with your primary care provider. Activity: Resume your previous activity Lifting: Gradually increase as tolerated Bathing: No limitations Exercise/Sports: Gradually increase as tolerated Driving/Machine Use: Resume 1 day after discharge Weightbearing: Full weightbearing Non-emergency contact: Surgeon Call non-emergency contact if: your temperature is above 101.5, your wound has increased redness, your wound has increased drainage and your wound pain has increased Follow-up/Referrals: Shantel Freed [Primary Care Provider] - (ABE AT THE OFFICE STATES SHE WILL CALL THE PATIENT WITH A HOSPITAL FOLLOW UP VISIT.) Jhonatan Mandujano, OWEN [Physician] - 01/02/25 9:15 am Diet: Regular Diet Texture: Easy to Chew Gavin Attending Provider Instructions: You have been hospitalized for a dental infection that spread to the sinuses. Dr Mandujano was consulted and removed the tooth and you have made significant improvement with IV antibiotics and are being sent home on AUGMENTIN twice daily for 10days as discussed. Short prescription for oxycodone has been sent as well as zofran for nausea but as discussed can take tylenol/ibuprofen for non-severe pain. Please continue oral hygiene/mouth rinse and ocean nasal spray to the nose twice daily to help lubricate your sinuses. Please follow up with Dr Mandujano at discharge as arranged as well as primary care. Please return to the ER with any increased swelling, redness, pain, difficulty swallowing, fever, or for any other symptoms concerning for you. It has been a pleasure being a part of the medical team providing for you while you have been in the hospital. Take care! Addtl Account Resolution Analyst Provider Instructions: ADDITIONAL ACTIVITY RECOMMENDATIONS: * [place] teeth after every meal. It is very important to keep your mouth clean to prevent infection. * Starting tonight rinse with the Peridex as directed then 2 x a day * it is very important to keep well hydrated, this prevents fever and possible dry socket pain * avoid hard nose blowing to prevent sinus perforation. * use saline nasal spray 2 spray each nostril 4 x a day to help flush out the sinus SPECIAL CARE INSTRUCTIONS: *It is not uncommon that between day 2-4 that your swelling will be at its worst this is very normal, do not be alarmed. * Keep ice on the side of your face for the next 24 to 36 hours. This will help keep the swelling down. * You may experience slight nausea. To prevent this, never take your medication on an empty stomach. If nauseated, take small sips of agnieszka ivanna until you feel better; then you may start on applesauce and toast. * A certain amount of bleeding is to be expected. It is often possible to control mild oozing by placing folded gauze over the area and biting down for 30 minutes. If you are unable to control excessive bleeding, call Dr Mandujano at [phone] * You may experience some discomfort for a few days. If pain or swelling increases, Call Dr Mandujano * Return to the office for a follow up check up on: * office address--[facility] [address]. phone # [phone] Pending Studies at Discharge: Yes Studies:: pathology and C&S Stand-Alone Forms: My [facility] [employer], Work/School Release, Smoking Cessation Medications and DC Order Prescriptions: New oxycodone 5 mg Tablet 5 mg PO Q4H PRN (Reason: pain) Qty: 20 0RF amoxicillin-pot clavulanate 875-125 mg tablet 1 tab PO BID Qty: 20 0RF ondansetron 4 mg tablet,disintegrating 4 mg PO Q8H PRN (Reason: nausea and vomiting) 4 Days Qty: 14 0RF Continued lisinopril 10 mg tablet 10 mg PO HS multivitamin Tablet 1 tab PO QAM atorvastatin 10 mg tablet 10 mg PO HS acetaminophen [Tylenol Extra Strength] 500 mg Tablet 1,000 mg PO Q6H PRN (Reason: Pain) pantoprazole 40 mg tablet,delayed release (DR/EC) 40 mg PO QAM montelukast 10 mg tablet 10 mg PO HS lisinopril-hydrochlorothiazide 10-12.5 mg tablet 1 tab PO QAM loratadine [Claritin] 10 mg Tablet 10 mg PO QAM lamotrigine [Lamictal] 25 mg tablet 50 mg PO BID Rx Instructions: 2 tabs po BID. sertraline 50 mg tablet 50 mg PO QAM Discontinued clindamycin HCl 150 mg capsule 150 mg PO Q6H Rx Instructions: STARTED 12/14/24 FOR 7 DAYS Discharge Orders: Discharge Order (Routine); Ordered 12/18/24 Ordered By: Cynthia Fisher/Other Patient Handouts: Dental Abscess, Cellulitis Dc Admission Data Admit Date/Time: 12/17/24 08:34 Attending Provider: Ross Alanis Admit Provider: Kenneth Benavidez Primary Care Provider: Shantel Freed Other Providers: Kenneth Benavidez; Jhonatan Mandujano Hospital Stay Data Consultations 12/16/24 00:07 ED Decision to Admit Stat 12/16/24 02:17 Consult Oromaxillofacial Surgery Routine Procedures Performed Operation Date: 12/17/24 07:30 Actual Procedures p Facial Incision and Drainage, and Excision of Left Maxillary Sinus Cyst(Left) - Jhonatan Mandujano DMD s Extraction of Tooth #14 (Left) - Jhonatan Mandujano DMD Diagnostic Imagining Performed Face CT 12/15/24 21:51 Exam(s): CT FACIAL With Contrast IV Amt: 90 cc opti 320 EXAM: CT Maxillofacial With Intravenous Contrast CLINICAL HISTORY: Reason for exam: facial swelling. TECHNIQUE: Axial computed tomography images of the face with intravenous contrast. CTDI is 7.64 mGy and DLP is 145.91 mGy-cm. Automated exposure control was utilized for the study. A dose lowering technique was utilized adhering to the principles of ALARA. CONTRAST: Patient received 90 cc opti 320 of IV contrast COMPARISON: No relevant prior studies available. FINDINGS: There is periapical lucency/abscess involving the left first maxillary molar (tooth 14). There is dehiscence of the outer maxillary cortex with associated subperiosteal abscess measuring 6 x 15 x 10 mm (axial 37, sagittal 68). There is cellulitis of the adjacent lateral left upper lip soft tissues. There is reactive odontogenic sinus disease in the left maxillary sinus. There are no fractures. Paranasal sinuses are otherwise clear. Orbits are unremarkable. IMPRESSION: 1. Periapical abscesses left first maxillary molar (tooth 14) with dehiscence of the maxillary cortex, adjacent subperiosteal abscess, regional cellulitis. 2. Odontogenic left maxillary sinus disease. Electronically signed by: Tyra Kelly M.D. 12/15/24 23:40 PM Pending Results Patient Have Any Pending Studies at Discharge: Yes Discharge Instructions Given to Patient (Per Discharging Provider) You have been hospitalized for a dental infection that spread to the sinuses. Dr Mandujano was consulted and removed the tooth and you have made significant improvement with IV antibiotics and are being sent home on AUGMENTIN twice daily for 10days as discussed. Short prescription for oxycodone has been sent as well as zofran for nausea but as discussed can take tylenol/ibuprofen for non-severe pain. Please continue oral hygiene/mouth rinse and ocean nasal spray to the nose twice daily to help lubricate your sinuses. Please follow up with Dr Mandujano at discharge as arranged as well as primary care. Please return to the ER with any increased swelling, redness, pain, difficulty swallowing, fever, or for any other symptoms concerning for you. It has been a pleasure being a part of the medical team providing for you while you have been in the hospital. Take care! Total Time Total Time Spent Total Time Spent (In Minutes): 40 Coding Level of Care Code 62431 INP/OBS DISCH >30 MIN Diagnoses Periapical abscess K04.7 Cellulitis of face L03.211 Dental abscess K04.7 Hyperlipidemia E78.5 Hypertension I10 Post concussive syndrome F07.81
== END 2024-12-18 10:43 | disposition home or self-care (01) | DRG 137 ==
LOC: EDINP 20:26 → ED 20:26 → SUATTDRO 12-16 00:49 → 3W 12-16 02:18 → SUATTDRO 12-17 08:34